=== PATIENT | male | born 1990 | race African-American/Black ===

== ENCOUNTER 2018-01-02 02:14 | Emergency (ER) | payer BC, OTHER ==
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
[2018-01-02 03:32] LABS: ABS Basophils 0.1 10^3/ul (0-0.2); ABS Eosinophils 0.1 10^3/ul (0-0.6); ABS Lymphocytes 2.1 10^3/ul (1.0-4.8); ABS Monocytes 0.6 10^3/ul (0-0.8); ABS Nucleated RBC 0 10^3/ul; Eosinophil % 1.1 % (0-6); Hematocrit 48 % (42-52); Hemoglobin 16.2 g/dl (14.0-18.0); Lymphocyte % 21.4 % (25-47); Mean Corpuscular HGB Conc 34 g/dl (31-36); Mean Corpuscular Hemoglobin 30 pg (27-31); Mean Corpuscular Volume 90 fL (80-94); Mean Platelet Volume 6 um3 (7.4-10.4); Nucleated Red Blood Cells % 0; Platelet Count 344 10^3/ul (150-450); Red Blood Count 5.31 10^6/ul (4.0-5.4); Red Cell Distribution Width 14 % (10.5-15)
[2018-01-02 03:45] LABS: EGFR Non-African American 68.6 (>60)
[2018-01-02] MEDS ORDERED: Nicotine Inhaler* 10 MG AMP INH ONE (04:18)
[2018-01-02] MEDS ORDERED: Mouth Piece, Nicotine* 1 EACH CARTRIDGE INH PRN (04:18)
[2018-01-02] MEDS ORDERED: KETAMINE HCL* 50 MG/ML 10 ML VIAL IV ONE (04:32)
[2018-01-02] MEDS ORDERED: KETAMINE HCL* 50 MG/ML 10 ML VIAL ONE (04:36)
[2018-01-02 08:47] VITALS: BP 136/83
== END 2018-01-02 12:16 | disposition home or self-care (01) ==
LOC: ED 02:14
DX: F10.129 Alcohol abuse with intoxication, unspecified (principal); F10.121 Alcohol abuse with intoxication delirium; F17.210 Nicotine dependence, cigarettes, uncomplicated
CPT/HCPCS: 36415; 80053; 80320; 80329; 84443; 85025; 96372; 99285; A9270-GY; G0480